=== PATIENT | female | born 1980 | race Caucasian/White ===

== ENCOUNTER → 2017-03-25 | Outpatient (CLI) | payer BC ==
[2017-03-25 07:56] LABS: ADD SCAN DIFF NO
[2017-03-25 07:58] LABS: BASOPHILS % 0.7 % (0.0-2.0); EOSINOPHILS # 0.1 10^3/ul (0.0-0.5); EOSINOPHILS % 0.8 % (0.0-7.0); HEMATOCRIT 34.3 % (37.0-47.0); HEMOGLOBIN 11.6 g/dl (12.0-16.0); LYMPHOCYTES # 2.2 10^3/ul (0.8-2.9); LYMPHOCYTES % 35.5 % (15.0-51.0); MEAN CORPUSCULAR HEMOGLOBIN 32.4 pg (29.0-33.0); MEAN CORPUSCULAR HGB CONC 33.8 g/dl (32.0-37.0); MEAN CORPUSCULAR VOLUME 95.8 fl (82.0-101.0); MEAN PLATELET VOLUME 10.7 fl (7.4-10.4); MONOCYTE # 0.3 10^3/ul (0.3-0.9); NEUTROPHIL # 3.5 10^3/ul (1.6-7.5); NEUTROPHILS % 57.7 % (39.0-77.0); PLATELET COUNT 216 10^3/UL (140-415); RED BLOOD COUNT 3.58 10^6/ul (4.20-5.40); RED CELL DISTRIBUTION WIDTH 12.3 % (11.5-14.5); WHITE BLOOD COUNT 6.1 10^3/ul (4.8-10.8)
[2017-03-25 08:02] LABS: ADD UMIC YES; URINE BILIRUBIN (Dip) NEGATIVE (NEGATIVE); URINE BLOOD (Dip) 2+ (NEGATIVE); URINE COLOR LT. YELLOW (YELLOW); URINE GLUCOSE (Dip) NEGATIVE (NEGATIVE); URINE KETONES (Dip) NEGATIVE (NEGATIVE); URINE LEUKOCYTE ESTERASE (Dip) TRACE (NEGATIVE); URINE NITRITE (Dip) NEGATIVE (NEGATIVE); URINE TOTAL PROTEIN (Dip) NEGATIVE (NEGATIVE); URINE UROBILINOGEN (Dip) 0.2 E.U./dL (0.1-1.0)
[2017-03-25 08:18] LABS: IRON 58 ug/dl (35-150)
[2017-03-25 08:27] LABS: TOTAL IRON BINDING CAPACITY 397 ug/dl (241-421)
[2017-03-25 08:37] LABS: BACTERIA,URINE MODERATE
[2017-03-25 09:30] LABS: THYROID STIMULATING HORMONE 1.63 MIU/L (0.465-4.680)
[2017-03-25 09:34] LABS: FERRITIN 19.2 ng/ml (6.2-137.0)
[2017-03-25 10:04] LABS: FOLATE 11.4 ng/ml (2.8-20.0)
[2017-03-26 06:22] LABS: PROTEIN, TOTAL 7.2 g/dL (6.1-8.1)
[2017-03-26 22:25] LABS: ALBUMIN 4.1 g/dL (3.8-4.8)
== END | disposition home or self-care (01) ==
LOC: LAB 06:07
PROVIDERS: ATTEND Internal Medicine
DX: D72.829 Elevated white blood cell count, unspecified (principal); D64.9 Anemia, unspecified
CPT/HCPCS: 81001; 81003; 82306; 82607; 82728; 82746; 82785; 83540; 84155; 84165; 84443; 85025; 85651; 86140

== ENCOUNTER 2017-07-20 12:14 | Emergency (ER) | payer BC ==
[~2017-07-20] VITALS: Ht 157.5 cm; Wt 72.0 kg
[2017-07-20 12:17] VITALS: Ht 157.5 cm; Wt 72.0 kg
[2017-07-20] MEDS ORDERED: IBUPROFEN 600 MG TAB PO ONE (13:00)
--- NOTE | 2017-07-20 13:26 | RADRPT ---
PROCEDURE: Left foot series CLINICAL INDICATION: TRAUMA TECHNIQUE: AP, lateral and oblique views of the left foot was obtained. COMPARISON: None. FINDINGS: There is no evidence of acute fractures or dislocations. The bony mineralization is normal. No foc al bony blastic or lytic lesions. The soft tissues are unremarkable. IMPRESSION: Negative left foot series. RPTAT:AAJJ Physician Donovan Date Time Electronically viewed and signed by Rodolfo Koo Physician on 07/20/2017 13:26 /
--- NOTE | 2017-07-20 13:35 | RADRPT ---
PROCEDURE: Left ankle series CLINICAL INDICATION: TRAUMA. Pain TECHNIQUE: 3 views. AP, lateral, and oblique. COMPARISON: None FINDINGS: No fractures are noted. No lesions are visualized. No significant degenerative changes are noted. The ankle mortise is intact. The soft tissues are unremarkable. IMPRESSION: 1. No bony abnormalities are identified. RPTAT: HH .Ruel Pablo MD, MD Date Time Electronically viewed and signed by .Ruel Pablo MD, on 07/20/2017 13:34 .G/
[2017-07-20] MEDS ORDERED: IBUP-1542 PO (13:43)
--- NOTE | 2017-07-20 13:47 | ERD ---
ER Documentation Chief Complaint Date/Time DATE: 07/20/17 TIME: 13:45 Chief Complaint left ankle pain/injury HPI This 37-year-old female presents with left ankle pain. She slipped on some stairs while coming down a parking structure today. She tried working but has had increasing pain. She has restricted range of motion due to pain but no weakness. There is no bleeding or lacerations. There is no history of head injury, neck injury, additional complications related to her fall today. ROS All systems reviewed and are negative except as per history of present illness. Medications Home Meds Active Scripts Ibuprofen* (Motrin*) 600 Mg Tab, 600 MG PO Q6, #20 TAB Prov:JOSÉ ROSADO MD 07/20/17 Physical Exam Vitals Vital Signs Date Time Temp Pulse Resp B/P Pulse Ox O2 Delivery O2 Flow Rate FiO2 07/20/17 12:17 98.1 79 18 128/78 99 Physical Exam Const: []Alert, [id number] Head: Atraumatic Eyes: Normal Conjunctiva ENT: Normal External Ears, Nose and Mouth. Neck: Full range of motion..~ No meningismus. Resp: Clear to auscultation bilaterally Cardio: Regular rate and rhythm, no murmurs Abd: Soft, non tender, non distended. Normal bowel sounds Skin: No petechiae or rashes Back: No midline or flank tenderness Ext: No cyanosis, or edema. There is some tenderness on the left fifth metatarsal base area. There is no significant swelling, restricted range of motion weakness or erythema or bleeding Neur: Awake and alert Psych: Normal Mood and Affect Results 24 hrs Current Medications Medications (Trade) Dose Ordered Sig/Hector Route PRN Reason Start Time Stop Time Status Last Admin Dose Admin Ibuprofen (Motrin) 600 mg ONCE ONCE PO 07/20/17 13:00 07/20/17 13:01 DC 07/20/17 12:50 Procedures/MDM X-ray left ankle 3V Interpreted by me: Bones: [No fracture] Joints: No dislocation. Impression-normal left ankle x-ray X-ray left foot 3V Interpreted by me: Bones: No fracture Joints: No dislocation Foreign body: None impression have normal left foot x-ray Patient presents with some symptoms of the ankle sprain without evidence of fracture, dislocation, tendon or neurologic deficits or bacterial infection. Patient is placed in left lower extremity walker boot and was neurovascular intact after the boot. Patient was discharged home instructions for ice and elevation and ibuprofen for pain and primary care and orthopedic follow-up. Patient is advised to return for fevers, redness, new worsening symptoms or primary doctor orthopedist as directeD .Addendum-patient called saying the pain was not relieved with ibuprofen. Patient was prescribed tramadol every 4-6 hours over the phone to local pharmacy Departure Diagnosis: Primary Impression: Ankle injury Encounter type: initial encounter Laterality: left Qualified Code: S99.912A - Injury of left ankle, initial encounter Condition: Stable Patient Instructions: Treating Ankle Sprains Additional Instructions: X-rays read as normal. Ice and elevate at home. Recheck with primary doctor and orthopedist for pain in the next week or return for fevers, redness, new symptoms JOSÉ ROSADO MD Jul 20, 2017 13:47
== END 2017-07-20 14:00 | disposition home or self-care (01) ==
LOC: FTE 12:14
DX: S99.912A Unspecified injury of left ankle, initial encounter (principal); W18.40XA Slipping, tripping and stumbling without falling, unspecified, initial encounter; Y92.89 Other specified places as the place of occurrence of the external cause
CPT/HCPCS: 73610

== ENCOUNTER → 2017-09-08 | Outpatient (CLI) | payer BC ==
[~2017-09-08] MED LIST: IBUP-1542 PO
[2017-09-08 10:37] LABS: BASOPHIL # 0.1 10^3/ul (0.0-0.1); BASOPHILS % 0.5 % (0.0-2.0); EOSINOPHILS # 0.1 10^3/ul (0.0-0.5); EOSINOPHILS % 0.6 % (0.0-7.0); HEMATOCRIT 38.5 % (37.0-47.0); HEMOGLOBIN 13.1 g/dl (12.0-16.0); LYMPHOCYTES # 2.6 10^3/ul (0.8-2.9); LYMPHOCYTES % 23.8 % (15.0-51.0); MEAN CORPUSCULAR VOLUME 93.9 fl (82.0-101.0); MEAN PLATELET VOLUME 10.8 fl (7.4-10.4); MONOCYTE # 0.4 10^3/ul (0.3-0.9); MONOCYTES % 3.5 % (0.0-11.0); NEUTROPHIL # 7.7 10^3/ul (1.6-7.5); NEUTROPHILS % 71.3 % (39.0-77.0); PLATELET COUNT 242 10^3/UL (140-415); RED CELL DISTRIBUTION WIDTH 12.3 % (11.5-14.5); WHITE BLOOD COUNT 10.8 10^3/ul (4.8-10.8)
[2017-09-08 10:43] LABS: ADD UMIC YES; UR ASCORBIC ACID NEGATIVE (NEGATIVE); UR BACTERIA FEW /HPF (NONE SEEN); UR BILIRUBIN (Dip) NEGATIVE (NEGATIVE); UR BLOOD (Dip) 2+ mg/dL (NEGATIVE); UR CLARITY CLEAR (CLEAR); UR COLOR STRAW (YELLOW); UR GLUCOSE (Dip) NEGATIVE (NEGATIVE); UR KETONES (Dip) NEGATIVE (NEGATIVE); UR LEUKOCYTE ESTERASE (Dip) NEGATIVE Leu/ul (NEGATIVE); UR NITRITE (Dip) NEGATIVE (NEGATIVE); UR RBC 2 /HPF (0-5); UR SPECIFIC GRAVITY (Dip) 1.003 (1.003-1.030); UR TOTAL PROTEIN (Dip) NEGATIVE (NEGATIVE); UR UROBILINOGEN (Dip) NEGATIVE (NEGATIVE)
[2017-09-08 11:13] LABS: ALBUMIN 4.4 g/dl (3.3-4.9); ALBUMIN/GLOBULIN RATIO 1.02; BILIRUBIN,INDIRECT 0.3 mg/dl (0-1.1); BILIRUBIN,TOTAL 0.3 mg/dl (0.2-1.3); CALCIUM 9.6 mg/dl (8.4-10.2); CHOL/HDL RATIO 2.5 RATIO; CREATININE 0.78 mg/dl (0.44-1.00); POTASSIUM 3.9 mmol/L (3.5-5.1); TOTAL PROTEIN 8.7 g/dl (6.1-8.1)
[2017-09-08 11:29] LABS: FREE T3 3.46 pg/ml (2.77-5.27)
[2017-09-09 14:01] LABS: LUTEINIZING HORMONE 2.5 mIU/mL
== END | disposition home or self-care (01) ==
LOC: LAB 10:05
PROVIDERS: ATTEND Internal Medicine
DX: Z00.00 Encounter for general adult medical examination without abnormal findings (principal)
CPT/HCPCS: 80053; 80061; 81001; 82670; 83001; 83002; 84146; 84439; 84481; 85025; 85651

== ENCOUNTER → 2018-02-09 | Outpatient (CLI) | END | disposition home or self-care (01) ==

== ENCOUNTER → 2018-05-25 | Outpatient (CLI) | END | disposition home or self-care (01) ==

== ENCOUNTER → 2018-09-08 | Outpatient (CLI) | END | disposition home or self-care (01) ==

== ENCOUNTER → 2018-09-16 | Outpatient (CLI) | END | disposition home or self-care (01) ==

== ENCOUNTER → 2019-02-28 | Outpatient (CLI) | payer BC | END | disposition home or self-care (01) | LOC: RAD 16:27 | PROVIDERS: ATTEND Internal Medicine | DX: R05 Cough (principal) | CPT/HCPCS: 71045 ==

== ENCOUNTER 2019-06-30 12:28 | Emergency (ER) | payer SELFPAY ==
[~2019-06-30] VITALS: Ht 157.5 cm; Wt 59.3 kg
[2019-06-30 12:32] VITALS: BP 114/54; PULSE 61; RESP 17; Ht 157.5 cm; Wt 59.3 kg
--- OUTSIDE RECORDS SUMMARY | 2019-06-30 13:09 | XMS REPORT | Clinical Summary ---
Demographics [phone] [place] [address] Care Team Providers Source Comments NOTE: The information displayed by [facility] is extracted from the complete [facility] record and may not identify all current or past patient conditions. See bel ow for further instructions regarding Mental Health and CDRP patients.[facility] Allergies [id number] Reactions Drug ot on file Active Problems Not on file Immunizations htheria, Tetanus, 1979 11/20/1994 ) (Polio, live 1979, RBED Social History [id number] Years Used ssed [id number] Travel [id number] l Signs Not on file Plan of Treatment 2 08/15/1981, 12/25/2003 t on filefrom Last 3 Months Additional Source Comments FOR RECORDS PERTAINING TO PATIENTS WHO ARE OR HAVE BEEN ENROLLED IN A CHEMICAL D EPENDENCY/SUBSTANCE ABUSE PROGRAM PLEASE NOTE: Some of the enclosed informa tion may contain records from the patient's treatment in a substance abuse progr am that are protected by Federal confidentiality rules (42 CFR part 2). The [facility] rules prohibit you from making any further disclosure of this information un less further disclosure is expressly permitted by the written consent of the per son to whom it pertains or as otherwise permitted by 42 CFR part 2. A general au thorization for the release of medical or other information is NOT sufficient fo r this purpose. The Federal rules restrict any use of the information to crimina lly investigate or prosecute any alcohol or drug abuse patient.[facility]
== END 2019-06-30 14:17 | disposition left against medical advice (07) ==
LOC: FTE 12:28
DX: S99.922A Unspecified injury of left foot, initial encounter (principal); X58.XXXA Exposure to other specified factors, initial encounter; Y92.9 Unspecified place or not applicable
CPT/HCPCS: 99282

== ENCOUNTER → 2019-06-30 | Outpatient (CLI) | payer BC | END | disposition home or self-care (01) | LOC: RAD 16:31 | PROVIDERS: ATTEND Internal Medicine | DX: S92.502A Displaced unspecified fracture of left lesser toe(s), initial encounter for closed fracture (principal); X58.XXXA Exposure to other specified factors, initial encounter ==

== ENCOUNTER → 2019-09-14 | Outpatient (CLI) | payer BC | END | disposition home or self-care (01) | LOC: LAB 07:28 | PROVIDERS: ATTEND Internal Medicine | DX: Z00.00 Encounter for general adult medical examination without abnormal findings (principal) | CPT/HCPCS: 80053; 80061; 81001; 82306; 82378; 82607; 82728; 83540; 84436; 84443; 84481; 85025; 85651; 86140; 86304 ==